=== PATIENT | female | born 1975 | race Caucasian/White ===

== ENCOUNTER → 2019-04-08 12:30 | Outpatient (CLI) | payer SELFPAY ==
--- NOTE | 2019-04-08 | DI.MG.S_ITS ---
BILATERAL DIGITAL DIAGNOSTIC MAMMOGRAM 3D/2D: 04/08/2019 CLINICAL: Diffuse bilateral breast pain. Bilateral green nipple discharge which she is not currently experiencing at this time. Additional films were requested but not obtained. The tissue of both breasts is heterogeneously dense. This may lower the sensitivity of mammography. Patient reports diffuse bilateral breast pain. Mammography demonstrates diffuse bilateral heterogenously dense fibroglandular tissue with no convincing underlying mass or abnormality. Patient reports a history of sporadic bilateral green nipple discharge which she is not currently experiencing at this time. Mammography demonstrates diffuse bilateral heterogenously dense fibroglandular tissue with no convincing underlying mass or abnormality. There is no retroareolar mass or abnormality. No significant masses, calcifications, or other findings are seen in either breast. IMPRESSION: INCOMPLETE: NEED PRIOR STUDIES FOR COMPARISON Mammography demonstrates diffuse bilateral heterogenously dense fibroglandular tissue with no convincing underlying mass or abnormality to correlate with patient's diffuse bilateral breast pain. Mammography demonstrates diffuse bilateral heterogenously dense fibroglandular tissue with no convincing underlying mass or abnormality to correlate with patient's sporadic bilateral nipple discharge. This exam was interpreted at Station ID: [id number]. NOTE: For mammograms, a report in lay terms will be sent to the patient. Approximately 15% of breast malignancies will not be visualized mammographically. In the management of a palpable breast mass, a negative mammogram must not discourage biopsy of a clinically suspicious lesion. Electronically Signed By: Deonte Shell M.D. ecl/:04/08/2019 13:55:36 ACR BI-RADS Category 0 Need prior studies for comparison 3340F
--- NOTE | 2019-04-08 | DI.US.S_ITS ---
LIMITED ULTRASOUND OF RIGHT BREAST: 04/08/2019 CLINICAL: Additional evaluation. Comparison is made to exam dated: 04/08/2019 [facility]. Color flow and real-time ultrasound of the right breast upper outer quadrant and retroareolar regions were performed. Nye scale images of the real-time examination were reviewed. There is a 0.4 x 0.3 x 0.5 cm oval indistinct hypoechoic cyst with posterior acoustic enhancement, low-level internal echogenic foci, and no vascularity on Doppler imaging located in the right breast 1:00 retroareolar position. There is a 0.5 x 0.6 x 0.3 cm oval hypoechoic probable complicated cyst with indistinct margin, posterior acoustic enhancement, and no vascularity on Doppler imaging located in the right breast at 12:00 position 5 cm from the nipple. IMPRESSION: PROBABLY BENIGN 1. 0.5 cm probable complicated cyst in the right breast 1:00 retroareolar position. A followup targeted ultrasound and possible mammogram in 6 months is recommended to demonstrate stability. 2. 0.6 cm probable complicated cyst in the right breast at 12:00 position 5 cm from the nipple. A followup targeted ultrasound and possible mammogram in 6 months is recommended to demonstrate stability. 3. No other ultrasound findings to suggest an etiology for the patient's reported pain. Recommend clinical followup for further evaluation and management. Consider breast MRI if there is continued clinical concern. 4. No other ultrasound findings to suggest an etiology for the patient's sporadic breast discharge. Recommend clinical followup for further evaluation and management. Consider breast MRI if there is continued clinical concern. This exam was interpreted at Station ID: [id number]. Electronically Signed By: Deonte Shell M.D. ecl/:04/08/2019 16:56:28 letter sent: Followup Recommended Ultrasound BI-RADS: 3 Probably benign
--- NOTE | 2019-04-08 | DI.US.S_ITS ---
LIMITED ULTRASOUND OF LEFT BREAST: 04/08/2019 CLINICAL: Additional evaluation. Comparison is made to exam dated: 04/08/2019 [facility]. Color flow and real-time ultrasound of the left breast upper outer quadrant and retroareolar regions were performed. Nye scale images of the real-time examination were reviewed. There is a 0.6 x 0.5 x 0.4 cm oval circumscribed anechoic cyst with posterior acoustic enhancement and no vascularity on Doppler imaging located in the left breast 1:00 retroareolar position. There is a 0.7 x 0.7 x 0.6 cm oval microlobulated hypoechoic cyst with posterior acoustic enhancement and no vascularity on Doppler imaging located in the left breast 1:00 retroareolar position. There is a 0.5 x 0.5 x 0.3 cm oval indistinct hypoechoic cyst with low-level internal echogenic foci, posterior acoustic enhancement, and no vascularity on Doppler imaging located in the left breast at 1:00 position 6 cm from the nipple. IMPRESSION: PROBABLY BENIGN 1. 0.6 cm benign-appearing simple cyst located in the left breast at 1:00 retroareolar position. 2. 0.7 cm probable complicated cyst located in the left breast at 1:00 retroareolar position. A followup targeted ultrasound and possible mammogram in 6 months is recommended to demonstrate stability. 3. 0.5 cm probable complicated cyst in the left breast at 1:00 position 6 cm from nipple. A followup targeted ultrasound and possible mammogram in 6 months is recommended to demonstrate stability. 4. No other ultrasound findings to suggest an etiology for the patient's reported pain. Recommend clinical followup for further evaluation and management. Consider breast MRI if there is continued clinical concern. 5. No other ultrasound findings to suggest an etiology for the patient's sporadic breast discharge. Recommend clinical followup for further evaluation and management. Consider breast MRI if there is continued clinical concern. This exam was interpreted at Station ID: [id number]. Electronically Signed By: Deonte Shell M.D. ecl/:04/08/2019 16:51:22 letter sent: Followup Recommended Ultrasound BI-RADS: 3 Probably benign
== END ==
PROVIDERS: PCP Nurse Practitioner Family; Visit Provider Nurse Practitioner Family
DX: R92.8 Other abnormal and inconclusive findings on diagnostic imaging of breast (principal); N64.4 Mastodynia; N60.02 Solitary cyst of left breast; N60.01 Solitary cyst of right breast
CPT/HCPCS: 76642; 77066; G0279

== ENCOUNTER → 2022-08-02 09:57 | Outpatient (CLI) | payer OTHER, SELFPAY ==
--- NOTE | 2022-08-02 | DI.US.S_ITS ---
PROCEDURE: US BREAST LT LIMITED COMPARISON: [facility], BREAST LT LIMITED, 04/08/2019, 13:56. INDICATIONS: LATE SIX MONTH FOLLOW UP FINDINGS: IMPRESSION: In the 1 o'clock position of the left breast there is a retroareolar microlobulated cyst which was previously seen but is not seen on today's ultrasound. A 01:00 o'clock position cyst a 01:00 o'clock retroareolar minimally complicated cyst measuring 0.3 x 0.5 x 0.3 cm is smaller compared to the prior ultrasound. A 03:00 o'clock retroareolar cyst with minimal debris is also seen measuring 2.5 mm. Previously seen cysts in the left breast 1 o'clock position and the left breast are no longer seen. Simple cysts are identified. Dictated by: Perry Renteria M.D. on 08/02/2022 at 12:20 Approved by: Perry Renteria M.D. on 08/02/2022 at 12:23
--- NOTE | 2022-08-02 | DI.MG.S_ITS ---
BILATERAL DIGITAL DIAGNOSTIC MAMMOGRAM 3D/2D: 08/02/2022 CLINICAL: Late Short term follow up for bilateral breasts, due for bilateral exam. Comparison is made to exam dated: 04/08/2019 mammogram - [facility]. Both breasts are heterogeneously dense, which may obscure small masses (category c / 51-75% glandular tissue). No significant masses, calcifications, or other findings are seen in either breast. IMPRESSION: INCOMPLETE: NEEDS ADDITIONAL IMAGING EVALUATION No mammographic evidence of malignancy. Ultrasound performed on 04/08/2019 of both the right and left breast demonstrated abnormalities for which follow-up was recommended. Therefore ultrasound will be performed today to follow-up those findings. Based on the Tyrer Cuzick model (a risk assessment model) the patient's lifetime risk is 13.3% and her 10 year risk is 2.4%. According to the ACR, ACS, and NCCN guidelines, an annual breast MRI exam along with mammogram is recommended if the patient's lifetime risk is 20% or greater. This exam was interpreted at Station ID: [id number]. NOTE: For mammograms, a report in lay terms will be sent to the patient. Approximately 15% of breast malignancies will not be visualized mammographically. In the management of a palpable breast mass, a negative mammogram must not discourage biopsy of a clinically suspicious lesion. Electronically Signed By: Perry Renteria M.D. acr/:08/02/2022 12:17:27 ACR BI-RADS Category 0: Incomplete 3340F
--- NOTE | 2022-08-02 | DI.US.S_ITS ---
ULTRASOUND OF RIGHT BREAST: 08/02/2022 CLINICAL: Patient returns today to evaluate two focal asymmetries in the right breast. Comparison is made to exams dated: 08/02/2022 mammogram, 04/08/2019 ultrasound, and 04/08/2019 mammogram - [facility]. Color flow and Doppler ultrasound of the right breast were performed. A previously seen cyst in the right breast 12:00 position 5 cm from the nipple is no longer seen. An anechoic cyst measuring 0.3 x 0.3 x 0.2 cm in the 1:00 retroareolar position is smaller. IMPRESSION: BENIGN There is no sonographic evidence of malignancy. A simple benign cyst is identified. A 1 year screening mammogram is recommended. This exam was interpreted at Station ID: [id number]. Electronically Signed By: Perry Renteria M.D. acr/:08/02/2022 12:19:52 letter sent: Normal Exam Ultrasound BI-RADS: 2 Benign
== END ==
PROVIDERS: PCP Registered Nurse; Referring Provider Registered Nurse; Visit Provider Registered Nurse
DX: R92.8 Other abnormal and inconclusive findings on diagnostic imaging of breast (principal); N60.01 Solitary cyst of right breast; N60.02 Solitary cyst of left breast
CPT/HCPCS: 76642; 77066; G0279

== ENCOUNTER → 2023-08-08 11:12 | Outpatient (CLI) | payer OTHER, SELFPAY ==
--- NOTE | 2023-08-08 11:16 | DI.MG.S_ITS ---
BILATERAL DIGITAL SCREENING MAMMOGRAM 3D/2D WITH CAD: 08/08/2023 CLINICAL: Routine screening. Comparison is made to exams dated: 08/02/2022 mammogram and 04/08/2019 mammogram - . Both breasts are heterogeneously dense, which may obscure small masses (category c / 51-75% glandular tissue). Current study was also evaluated with a Computer Aided Detection (CAD) system. No significant masses, calcifications, or other findings are seen in either breast. There has been no significant interval change. IMPRESSION: NEGATIVE There is no mammographic evidence of malignancy. A 1 year screening mammogram is recommended. Based on the Tyrer Cuzick model (a risk assessment model) the patient's lifetime risk is 13.5% and her 10 year risk is 2.6%. According to the ACR, ACS, and NCCN guidelines, an annual breast MRI exam along with mammogram is recommended if the patient's lifetime risk is 20% or greater. This exam was interpreted at Station ID: [id number]. NOTE: For mammograms, a report in lay terms will be sent to the patient. Approximately 15% of breast malignancies will not be visualized mammographically. In the management of a palpable breast mass, a negative mammogram must not discourage biopsy of a clinically suspicious lesion. Electronically Signed By: Kiran starks/valerie:08/08/2023 12:22:28 letter sent: Normal Exam ACR BI-RADS Category 1: Negative [id number]
== END ==
LOC: MAMMO 11:16
PROVIDERS: PCP Registered Nurse; Referring Provider Registered Nurse; Visit Provider Registered Nurse
DX: Z12.31 Encounter for screening mammogram for malignant neoplasm of breast (principal); R92.333 Mammographic heterogeneous density, bilateral breasts
CPT/HCPCS: 77063; 77067

== ENCOUNTER → 2024-02-13 11:05 | Outpatient (CLI) | payer OTHER, SELFPAY ==
--- NOTE | 2024-02-13 11:16 | DI.US.S_ITS ---
PROCEDURE: US ABDOMEN COMPLETE INDICATIONS: epigastric pain TECHNIQUE: Real-time scanning was performed of the abdominal and retroperitoneal organs, with image documentation. COMPARISON: None. FINDINGS: Liver: Liver is normal in size and homogeneous in echotexture. Gallbladder: 3-4 small gallstones are seen, measuring approximately 3 mm. The gallbladder wall is not thickened, measuring 3 mm or less. No specific pericholecystic fluid is seen. The sonographic Agrawal sign is negative. Biliary ducts: Intrahepatic bile ducts are non-dilated. Extrahepatic bile duct caliber measures 5 mm. Normal is 6-7 mm or less in diameter, or 10 mm or less post-cholecystectomy. Pancreas: Visualized portions of the pancreas are sonographically normal. Spleen: Spleen is normal in size and homogeneous in echotexture. Kidneys: Kidneys are normal in size and echotexture. Right kidney measures 8.9 cm long; left kidney measures 10.4 cm long. No hydronephrosis or nephrolithiasis. No solid masses. Aorta: Visualized aorta is normal in caliber at less than 3 cm. Iliacs: Proximal common iliac arteries are normal in caliber at less than 2.5 cm. IVC: Intrahepatic inferior vena cava is patent. Miscellaneous: No free abdominal fluid. IMPRESSION: Gallstones are seen, yet without additional sonographic signs of cholecystitis. Negative for biliary dilatation. Please correlate with physical examination findings, patient presentation, and laboratory values. Dictated by: Abraham Boucher M.D. on 02/13/2024 at 12:45 Approved by: Abraham Boucher M.D. on 02/13/2024 at 12:46
== END ==
LOC: US 11:14
PROVIDERS: PCP Registered Nurse
DX: K80.20 Calculus of gallbladder without cholecystitis without obstruction (principal); R10.13 Epigastric pain
CPT/HCPCS: 76700